=== PATIENT | male | born 1990 | race Caucasian/White ===

== ENCOUNTER 2018-03-13 03:19 | Emergency (ER) | payer SELFPAY ==
[~2018-03-13] VITALS: Ht 162.6 cm; Wt 82.6 kg
[2018-03-13 03:19] VITALS: BP_SYST 126
[2018-03-13] MEDS ORDERED: ONDANSETRON 4 MG ODT TAB PO ONE (03:30)
[2018-03-13] MEDS ORDERED: KETOROLAC TROMETHAMINE 30 MG VIAL IM ONE (03:30)
[2018-03-13] MEDS ORDERED: BACITRACIN 1 GM OINT TP ONE (03:45)
[2018-03-13] MEDS ORDERED: DIPH-TET-PERTUS Vaccine 0.5 ML VIAL (ADACEL) I.M. ONE (03:45)
[2018-03-13 04:44] VITALS: BP_SYST 131
== END 2018-03-13 04:44 ==
LOC: SED 03:19
DX: S01.111A Laceration without foreign body of right eyelid and periocular area, initial encounter (principal); S00.81XA Abrasion of other part of head, initial encounter; Y04.0XXA Assault by unarmed brawl or fight, initial encounter; Y93.89 Activity, other specified; Y92.89 Other specified places as the place of occurrence of the external cause; Y99.8 Other external cause status
CPT/HCPCS: 70450; 70486; 90471; 90715; 96372; 99284; J1885; Q0162